=== PATIENT | male | born 1975 | race Caucasian/White ===

== ENCOUNTER 2023-04-02 13:32 | Day surgery (SDC) | payer BC ==
[2023-04-02] MEDS ORDERED: CEFAZOLIN SODIUM 2 GM/VIAL ONE (13:59)
[2023-04-02] MEDS ORDERED: Ringers Lactate 1,000 ML IV ONE (13:59)
[2023-04-02] MEDS ORDERED: ONDANSETRON 4 MG/2 ML VIAL ONE ×3 (14:28→17:45)
[2023-04-02] MEDS ORDERED: HYDROMORPHONE HCL 1 MG/ML INJ ONE (17:01)
[2023-04-02] MEDS ORDERED: propofoL 200 MG/20 ML VIAL IV ONE (17:44)
[2023-04-02] MEDS ORDERED: MIDAZOLAM HCL 2 MG/2 ML INJ ONE (17:44)
[2023-04-02] MEDS ORDERED: FENTANYL CITR 100 MCG/2 ML ONE (17:44)
[2023-04-02] MEDS ORDERED: LIDOCAINE 1% MPF 5 ML VIAL ONE (17:44)
[2023-04-02] MEDS ORDERED: KETOROLAC 30 MG/ML INJ ONE (17:45)
[2023-04-02] MEDS ORDERED: dexAMETHasone 4 MG/ML VIAL ONE (17:45)
[2023-04-02] MEDS ORDERED: LIDOCAINE HCL/EPINEPHRINE 20 ML MDV ONE (17:46)
--- NOTE | 2023-04-02 18:05 | P.OP ---
Preoperative diagnosis: LEFT Axillary Mass / Cyst Postoperative diagnosis: LEFT Axillary Mass / Cyst Primary procedure: Excision of LEFT Axillary Mass / Cyst Anesthesia: GETA + Local Estimated blood loss: <2cc Specimen: LEFT Axillary Tissue Findings: soft, rubbery tissue Complications: None Transferred to: Recovery Room Condition: Good
[2023-04-02 18:18] VITALS: O2SAT 100
[2023-04-02 19:02] VITALS: BP 126/73; TEMP 98.3
[2023-04-02] MEDS ORDERED: HYDROCODONE/APAP 7.5/325 MG TAB ONE (19:03)
--- NOTE | 2023-04-03 02:23 | OP ---
Date of Procedure: 04/02/2023 Surgeon: Wade Calvillo MD, Preoperative Diagnosis: Left axillary mass/cyst. Postoperative Diagnosis: Left axillary mass/cyst. Procedure Performed: Excision of left axillary mass/cyst. Anesthesia: General endotracheal with local with 0.25% Marcaine. Estimated Blood Loss: 2 cc. Specimen: Left axillary tissue. Findings: Soft rubbery tissues. Complication: None. The patient was transferred to the recovery room in good condition. Procedure In Detail: After informed consent was obtained, the patient was brought to the operating r oom, prepped and draped in the usual sterile fashion. After adequate anesthesia achieved, I made a l inear incision at the inferior aspect of the hairline on the left axilla. I dissected down through s ubcutaneous tissues with electrocautery to open the prepectoral fascia. There was a soft rubbery tis margo in the area. This was circumferentially dissected out, sent off for pathologic examination, with in adipose tissue. No significant pathologic findings were palpated within the remainder of the axil la. The area was copiously irrigated. The deep dermal plane was closed with interrupted 3-0 Vicryl suture and skin was closed with 4-0 Monocryl in the fascia. Dermabond was placed over top. The nina ent tolerated the procedure well without evidence of complication and was transferred to the PACU in good condition. All counts were correct at the end of the case. MECHELLE/ADAMARIS Voice ID: [id number] Report ID: [id number]
--- NOTE | 2023-04-04 11:20 | EKG ---
Test Date: 2023-04-02 Test Time: 09:35:26 Scroll Saw Operator: MATTEO MEASUREMENT RESULTS: Intervals: Rate: 76 MT: 130 QRSD: 88 QT: 366 QTc: 411 [place]: P: 81 MT: 130 QRS: 70 T: 66 INTERPRETIVE STATEMENTS: Normal sinus rhythm Normal ECG No previous ECG available for comparison Electronically Signed On 04-04-23 11:17:45 CDT by Noman Cotton
== END 2023-04-02 19:20 | disposition home or self-care (01) ==
LOC: OR 13:32
PROVIDERS: ATTEND Surgery
PROC: 0HBCXZZ Excision of Left Upper Arm Skin, External Approach (ICD-10-PCS; principal; 2023-04-02 17:45)
DX: D21.0 Benign neoplasm of connective and other soft tissue of head, face and neck (principal)
CPT/HCPCS: 11402; 93005; 88305; J2704; J1100; J2001; J2250; J3010; J1170; J2405 ×3; J7120; 88304

== ENCOUNTER 2024-07-10 16:32 | Observation (INO) | payer BC ==
[2024-07-10 17:25] VITALS: BMI 23.1
[2024-07-10] MEDS: NACHLORIDE 0.45% 1,000 ML IV SCH (17:49)
[2024-07-10 18:15] LABS: Absolute Basophils 0.1 K/uL (0-0.5); Absolute Eosinophils 0.5 K/uL (0-0.5); Absolute Monocytes 0.3 K/uL (0.1-1.3); Absolute Neutrophil 2.9 K/uL (1.8-8.0); Basophils % 2.1 % (0-1.3); Eosinophils % 8.5 % (0-4.4); Hematocrit 42.2 % (39.6-49.0); Hemoglobin 14.5 g/dL (13.6-17.9); Lymphocytes % 33.6 % (15.3-44.8); MCH 30.4 pg (27.0-35.0); MCHC 34.4 g/dL (32.0-36.0); MCV 88.2 fL (80-100); MPV 8.2 fL (7.6-11.3); Neutrophils % 49.8 % (41.7-73.7); Platelets 244 thou/uL (152-406); RBC Red Blood Cell Count 4.78 M/uL (4.33-5.43); Red Cell Distribution Width 12.7 % (12.1-15.2)
[2024-07-10 18:19] LABS: PT Prothrombin Time 12.7 SECONDS (9.4-12.5); PTT, Activated Partial Thromb 35.6 SECONDS (24.3-36.9); Protime INR 1.14
[2024-07-10 18:27] LABS: ALT/SGPT 21 U/L (16-61); Albumin 4.3 g/dL (3.4-5.0); Albumin/Globulin Ratio 1.7 (1.1-1.8); Alkaline Phosphatase 52 U/L (45-117); BUN Blood Urea Nitrogen 19 mg/dL (7-18); Bicarbonate 29 mEq/L (21-32); Bilirubin Direct 0.2 mg/dL (0-0.2); Bilirubin Total 1.2 mg/dL (0.2-1.0); Globulin 2.6 g/dL (2.3-3.5); Glomerular Filtration Rate 83 ml/min (=/>90); Glucose Level 99 mg/dL (74-106); Protein, Total 6.9 g/dL (6.4-8.2); Sodium Level 138 mEq/L (136-145)
[2024-07-10 18:31] LABS: AST/SGOT < 10 U/L (15-37)
--- NOTE | 2024-07-10 20:41 | RAD REPORT ---
EXAM: Chest Pa And Lat (2 Views) HISTORY: abdominal pain COMPARISON: None. FINDINGS: LUNGS/PLEURA: The lungs are clear. No pleural effusions or pneumothorax. No pulmonary edema. MEDIASTINUM: The mediastinal silhouette is within normal limits. CARDIAC: The cardiac silhouette is within normal limits. UPPER ABDOMEN: No significant abnormality. BONES: No acute fracture. LINES/TUBES/OTHER: N/A IMPRESSION: No evidence of acute cardiopulmonary disease
[2024-07-11 06:25] LABS: Specific Gravity 1.012 (1.005-1.030); Urine Bilirubin NEGATIVE (Negative); Urine Blood Negative (Negative); Urine Clarity Clear (Clear); Urine Color Light-Yellow (Yellow); Urine Glucose NEGATIVE (Negative); Urine Ketones 1+ (Negative); Urine Microscopic Reflex YN NO UMIC; Urine Nitrite NEGATIVE (Negative); Urine Protein NEGATIVE (Negative); Urine Urobilinogen Normal (Normal)
--- NOTE | 2024-07-11 07:30 | RAD REPORT ---
EXAMINATION: Hepatobiliary System W/ Ph CLINICAL INDICATION: abdominal pain TECHNIQUE: Hepatobiliary imaging was acquired over the abdomen for 60 minutes following intravenous a dministration of radiotracer. Slow intravenous administration of CCK. 1.6 Additional imaging was acquired over the abdomen for 30 minutes. Gallbladder ejection fraction was then calculated. RADIOPHARMACEUTICAL: 6.5 mCi Technetium 99m Mebrofenin. COMPARISON: No prior exams. FINDINGS: There is prompt accumulation of the radiopharmaceutical in the liver and excretion into the biliary d uctal system, gallbladder, and small bowel. Gallbladder ejection fraction was calculated at 47 % (normal range >35%). Patient was asymptomatic prior and during the administration of CCK. IMPRESSION: No evidence of acute cholecystitis Normal gallbladder contraction
[2024-07-11 12:35] VITALS: BP 116/68; TEMP 97.8
--- NOTE | 2024-07-11 13:10 | P.DS ---
Admission Date: 07/10/24 Discharge Date: 07/11/24 Disposition: ROUTINE DISCHARGE Discharge Condition: FAIR Brief History of Present Illness: PATRICK HAS A STRANGE PAIN FROM RUQ TO CHEST TO R MAX SINUS OFF AND ON. THE HIDA IS NEGATIVE. SONOGRAM IS NEG. MRI DONE LIVER SHOWS SOME [place]S AND IT WAS ALSO NEGATIVE. HE IS STABLE TO GO HOME. FU EGD WITH HIS GI MD. Vital Signs/Physical Exam: Temp Pulse Resp BP Pulse Ox 97.8 F 55 16 116/68 99 07/11/24 12:00 07/11/24 12:00 07/11/24 12:00 07/11/24 12:00 07/11/24 12:00 Laboratory Data at Discharge: WBC 5.80 thou/uL (4.3-10.9) 07/10/24 17:50 Hgb 14.5 g/dL (13.6-17.9) 07/10/24 17:50 Hct 42.2 % (39.6-49.0) 07/10/24 17:50 Plt Count 244 thou/uL (152-406) 07/10/24 17:50 PT 12.7 SECONDS (9.4-12.5) H 07/10/24 17:50 INR 1.14 07/10/24 17:50 APTT 35.6 SECONDS (24.3-36.9) 07/10/24 17:50 Sodium 138 mEq/L (136-145) 07/10/24 17:50 Potassium 4.0 mEq/L (3.5-5.1) 07/10/24 17:50 BUN 19 mg/dL (7-18) H 07/10/24 17:50 Creatinine 1.10 mg/dL (0.70-1.30) 07/10/24 17:50 Glucose 99 mg/dL (74-106) 07/10/24 17:50 Total Bilirubin 1.2 mg/dL (0.2-1.0) H 07/10/24 17:50 AST < 10 U/L (15-37) L 07/10/24 17:50 ALT 21 U/L (16-61) 07/10/24 17:50 Alkaline Phosphatase 52 U/L (45-117) 07/10/24 17:50 Home Medications: NK [No Home Meds] 07/10/24 Followup: Heron Baez MD [Primary Care Provider] -
--- NOTE | 2024-07-11 14:15 | RAD REPORT ---
EXAMINATION: MRI ABDOMEN WITHOUT AND WITH CONTRAST CLINICAL INDICATION: Male, 49 years old. liver protocol. mass like destinies on sonogram. TECHNIQUE: Multiplanar, multi sequence MRI imaging of the abdomen was performed before and after admi nistration of 17 mL MultiHance intravenously. Unless otherwise specified, incidental findings do not require dedicated imaging follow-up. Unless otherwise specified, incidental findings do not requi re dedicated imaging follow-up. COMPARISON: Abdomen MRI 09/15/2023. Abdomen ultrasound 06/27/2024 FINDINGS: LIVER: Normal in size, contour, and signal without a suspicious focal lesion. Small geographic region of early hypoenhancement adjacent to the gallbladder bed, for example on series 10 image 29, less conspicuous than on the prior exam, may represent a small hemangioma. This may correlate to one of th e sonographic findings. No other discrete sonographic correlate for the remainder of the sonographically identified lesions. GALLBLADDER: No stones, wall thickening, or pericholecystic fluid. Small fold noted at the gallbladde r fundus. BILE DUCTS: No intrahepatic or extrahepatic biliary ductal dilatation. PANCREAS: Normal T1 hyperintense signal. No mass, ductal dilation, or zohra-pancreatic fluid. SPLEEN: Normal size. No focal lesion. ADRENALS: Normal; no mass. KIDNEYS AND URETERS: Normal size and contour. No hydronephrosis. VISUALIZED GASTROINTESTINAL TRACT: Normal course and caliber. LYMPH NODES: No lymphadenopathy. ABDOMINAL AORTA AND OTHER VESSELS: Normal caliber aorta. IVC patent. MUSCULOSKELETAL: No marrow signal abnormality. ADDITIONAL FINDINGS: None. IMPRESSION: Small geographic region of early hypoenhancement the gallbladder bed, less conspicuous than on the pr ior MRI, may represent a small hemangioma. No other discrete correlate for the sonographically identified lesions. Although the overall sonograp hic appearance of the lesions is favored to be benign, a follow-up ultrasound is recommended in 6 months to ensure their stability.
== END 2024-07-11 14:29 | disposition home or self-care (01) ==
LOC: 2ND 16:32
PROVIDERS: ADMIT Internal Medicine; ATTEND Internal Medicine
DX: R10.11 Right upper quadrant pain (principal); K76.0 Fatty (change of) liver, not elsewhere classified; E78.5 Hyperlipidemia, unspecified; E80.4 Gilbert syndrome
CPT/HCPCS: 85025; 80048; 36415; 85610; 80076; 85730; 81003; 71046; 74183; 78227; A9577; J2805; A9537; G0379; G0378 ×2